=== PATIENT | male | born 1990 | race Caucasian/White ===

== ENCOUNTER 2016-08-15 14:29 | Emergency (ER) | payer OTHER ==
[2016-08-15] MEDS ORDERED: DIPHTH,PERTUSS(ACELL),TET VAC 0.5 ML VIAL IM ONE ×2 (18:31→18:32)
--- NOTE | 2016-08-15 19:06 | ERNOTE ---
Medical Problem HPI - General Chief Complaint: Laceration Time Seen by Provider: 08/15/16 18:41 Source: patient Exam Limitations: no limitations - Immun/Allergies/Home Medications Immunizations: IMMUNIZATION HX Immunizations Up to Date Yes History of Influenza Vaccine No Hx Pneumococcal Vaccination No Allergies/Adverse Reactions: Allergies No Known Allergies Allergy (Unverified 10/07/15 18:58) Home Medications: HOME MEDICATIONS SUMAtriptan SUCCINATE [Imitrex] 50 - 100 mg PO Q2H PRN 10/07/15 [Last Taken Unknown] - History of Present History Narrative: Patient sustained a forearm laceration at work when a grinding wheel came off, denies any other injuries Date (Duration): 08/15/16 Time (Timing): 14:00 Review of Systems - Review of Systems Constitutional: Absent: recent illness, fever ENT: Absent: sore throat Respiratory: Absent: shortness of breath Cardiology: Absent: chest pain Gastrointestinal/Abdominal: Absent: nausea, abdominal pain Skin: Present: See HPI Neurological: Absent: weakness, numbness - Patient's Past Medical History Patient History - Medical: Migraines Patient History - Cardiac/Respiratory: No pertinent hx Patient History - Cancer: No Hx of Cancer Patient History - Surgical Procedures: No surgical history - Social History Living Situations: home Smoking Status: Current every day smoker Alcohol Use: none Drug Use: none - Immunizations Immunizations Up to Date: No Physical Exam - Physical Exam General Appearance: Present: wd/wn, alert, no apparent distress Respiratory: Present: no respiratory distress Extremity Exam: Present: normal inspection - except below, other - 3cm laceration on left forearm over radial side Neurological Exam: Present: alert, oriented, normal mood/affect, no motor/ sensory deficits Skin Exam: Present: normal color, warm/dry ED Progress - Vital Signs Patient's Vital Signs:: I have reviewed the patient's vital signs. Vital Signs: Vital Signs 08/15/16 15:24 Temperature 36.8 C Pulse Rate 87 Respiratory 16 Rate Blood Pressure 132/69 O2 Sat by Pulse 99 Oximetry - Progress/Reassessment Chief Complaint: Laceration Procedures Left Arm Anesthesia: 1% Lidocaine, Local Length of Repair/Wound (cm): 3 Wound's Depth/Shape: into subcutaneous Wound Explored: clean, no foreign body Wound Intervention: irrigated w/saline Distal NVT: neuro/vasc intact, no tendon injury Suture Size/Type: 3-0, prolene Number of Sutures: 3 Layer Closure: Simple Estimated blood loss (ml): 1 Wound Dressing: sterile dressing applied Complications: Pt albert procedure well Departure - Departure Clinical Impression: Laceration of forearm Qualifiers: Encounter type: initial encounter Laterality: left Qualified Code(s): S51.812A - Laceration without foreign body of left forearm, initial encounter Disposition: Home self-care Condition: Good Instructions: Laceration Care, Adult, [id number] Additional Instructions: call in the morning for a follow up appointment have the sutures removed in 10-12 days Referrals: Jennifer Rizvi ARNP [[facility]] -
[2016-08-15 23:04] VITALS: BP 122/78
== END 2016-08-15 19:12 | disposition home or self-care (01) ==
LOC: ER 14:29
PROC: 0HQEXZZ Repair Left Lower Arm Skin, External Approach (ICD-10-PCS; principal; 2016-08-15)
DX: S51.812A Laceration without foreign body of left forearm, initial encounter (principal); Z23 Encounter for immunization; F17.210 Nicotine dependence, cigarettes, uncomplicated; W45.8XXA Other foreign body or object entering through skin, initial encounter